=== PATIENT | male | born 1985 | race African-American/Black ===

== ENCOUNTER 2018-12-23 10:22 | Inpatient (IN) | payer OTHER ==
[2018-12-23 10:58] VITALS: BMI 25.8
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
[2018-12-23] MEDS ORDERED: hydrOXYzine PAMOATE 50 MG CAPSULE (FP) PO PRN (11:57)
[2018-12-23] MEDS ORDERED: P-EPHED 60MG/TRIPROLIDI 2.5MG TABLET PO PRN (11:57)
[2018-12-23] MEDS ORDERED: MAGNESIUM HYDROX 2400MG/30ML ORAL SUSPENSION 30 ML CUP PO PRN (11:57)
[2018-12-23] MEDS ORDERED: MENTHOL/PHENOL 1 EACH UD MM PRN (11:57)
[2018-12-23] MEDS ORDERED: MAG HYDROX/AL HYDROX/SIMETH 30 ML UNIT-DOSE CUP PO PRN (11:57)
[2018-12-23] MEDS ORDERED: LOPERAMIDE HCL 2 MG CAPSULE PO PRN (11:57)
[2018-12-23] MEDS ORDERED: guaiFENesin 200 MG/10 ML 10 ML UNIT-DOSE CUPS PO PRN (11:57)
[2018-12-23] MEDS ORDERED: MAGNESIUM CITRATE 300 ML BOTTLE PO PRN (11:57)
[2018-12-23] MEDS ORDERED: TUBERCULIN PPD 5 TU/0.1ML VIAL ID ONE (13:17)
[2018-12-23] MEDS: NICOTINE 21 MG/24 HOURS TOPICAL PATCH TD SCH (13:20)
[2018-12-23] MEDS: IBUPROFEN 400 MG TABLET (FP) PO PRN (13:33)
[2018-12-23 15:45] LABS: HEMATOCRIT 40.5 % (35.4-49); HEMOGLOBIN 13.1 GM/dL (11.7-16.9); MCH 30.5 pg (25.7-33.7); MCHC 32.4 g/dl (32.0-35.9); MEAN CELL VOLUME 94.1 fl (80-96); PLATELET COUNT 299 K/MM3 (134-434); RDW 14.3 % (11.9-15.9); WHITE BLOOD COUNT 7.9 K/mm3 (4.0-10.0)
[2018-12-23 16:22] LABS: ALBUMIN 4.3 g/dl (3.4-5.0); ALK PHOS 70 U/L (45-117); ANION GAP 7 MMOL/L (8-16); BILIRUBIN,TOTAL 0.6 mg/dL (0.2-1); BLOOD UREA NITROGEN 14 mg/dL (7-18); CALCIUM 9.4 mg/dL (8.5-10.1); CHLORIDE 105 mmol/L (98-107); CO2 31 mmol/L (21-32); CREATININE 1.3 mg/dL (0.55-1.3); GLUCOSE,RANDOM 69 mg/dL (74-106); POTASSIUM 3.8 mmol/L (3.5-5.1); SGOT/AST 54 U/L (15-37); SGPT/ALT 33 U/L (13-61); SODIUM 143 mmol/L (136-145); TOT PROT 7.4 g/dl (6.4-8.2)
[2018-12-23 20:10] LABS: EPI CELLS 1.6 /HPF (0-5); PH,URINE 5.5 (5.0-8.0); URINE APPEARANCE CLEAR; URINE BACTERIA 1.4 /hpf (NEGATIVE); URINE BILIRUBIN NEGATIVE (NEGATIVE); URINE CASTS 7 /hpf (0-8); URINE COLOR DK YELLOW; URINE GLUCOSE (UA) NEGATIVE (NEGATIVE); URINE KETONE TRACE (NEGATIVE); URINE LEUK ESTERASE NEGATIVE (NEGATIVE); URINE NITRITE NEGATIVE (NEGATIVE); URINE PROTEIN TRACE (NEGATIVE); URINE RBC 5 /hpf (0-4); URINE WBC 2 /hpf (0-5)
[2018-12-23] MEDS: THIAMINE HCL 100 MG TABLET (FP) PO SCH (21:23)
[2018-12-23] MEDS: MELATONIN 5 MG TABLETS PO PRN (21:24)
[2018-12-24] MEDS: IBUPROFEN 400 MG TABLET (FP) PO PRN (10:35)
[2018-12-24] MEDS: PRENATAL VITAMINS W/ FOLIC ACID TABLET (FP) PO SCH (10:35)
[2018-12-24] MEDS: NICOTINE 21 MG/24 HOURS TOPICAL PATCH TD SCH (10:36)
[2018-12-24] MEDS: MELATONIN 5 MG TABLETS PO PRN (21:22)
[2018-12-24] MEDS: THIAMINE HCL 100 MG TABLET (FP) PO SCH (21:22)
[2018-12-25] MEDS: IBUPROFEN 400 MG TABLET (FP) PO PRN (10:37)
[2018-12-25] MEDS: NICOTINE 21 MG/24 HOURS TOPICAL PATCH TD SCH (10:40)
[2018-12-25] MEDS: PRENATAL VITAMINS W/ FOLIC ACID TABLET (FP) PO SCH (10:41)
[2018-12-25] MEDS: ACETAMINOPHEN 325 MG TABLET (FP) PO PRN (12:26)
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
[2018-12-25] MEDS: THIAMINE HCL 100 MG TABLET (FP) PO SCH (21:18)
[2018-12-25] MEDS: MELATONIN 5 MG TABLETS PO PRN (21:19)
[2018-12-26] MEDS: IBUPROFEN 400 MG TABLET (FP) PO PRN ×2 (00:33→15:51)
[2018-12-26] MEDS: PRENATAL VITAMINS W/ FOLIC ACID TABLET (FP) PO SCH (09:38)
[2018-12-26] MEDS: NICOTINE 21 MG/24 HOURS TOPICAL PATCH TD SCH (09:38)
[2018-12-26] MEDS: THIAMINE HCL 100 MG TABLET (FP) PO SCH (21:36)
[2018-12-26] MEDS: MELATONIN 5 MG TABLETS PO PRN (21:36)
[2018-12-27] MEDS: PRENATAL VITAMINS W/ FOLIC ACID TABLET (FP) PO SCH (09:48)
[2018-12-27] MEDS: NICOTINE 21 MG/24 HOURS TOPICAL PATCH TD SCH (09:48)
[2018-12-27] MEDS: IBUPROFEN 400 MG TABLET (FP) PO PRN (09:49)
[2018-12-27] MEDS: IBUPROFEN 600 MG TABLET (FP) PO PRN (14:50)
[2018-12-27] MEDS: MELATONIN 5 MG TABLETS PO PRN (21:22)
[2018-12-27] MEDS: THIAMINE HCL 100 MG TABLET (FP) PO SCH (21:23)
[2018-12-27] MEDS: BACITRACIN 0.9 GM PACKET TP SCH (21:23)
[2018-12-28] MEDS: BACITRACIN 0.9 GM PACKET TP SCH ×2 (10:21→21:24)
[2018-12-28] MEDS: PRENATAL VITAMINS W/ FOLIC ACID TABLET (FP) PO SCH (10:21)
[2018-12-28] MEDS: IBUPROFEN 600 MG TABLET (FP) PO PRN (10:21)
[2018-12-28] MEDS: NICOTINE 21 MG/24 HOURS TOPICAL PATCH TD SCH (10:26)
[2018-12-28] MEDS: ACETAMINOPHEN 325 MG TABLET (FP) PO PRN (13:27)
[2018-12-28] MEDS: MELATONIN 5 MG TABLETS PO PRN (21:24)
[2018-12-28] MEDS: THIAMINE HCL 100 MG TABLET (FP) PO SCH (21:24)
[2018-12-29] MEDS: BACITRACIN 0.9 GM PACKET TP SCH ×2 (10:19→21:30)
[2018-12-29] MEDS: NICOTINE 21 MG/24 HOURS TOPICAL PATCH TD SCH (10:19)
[2018-12-29] MEDS: PRENATAL VITAMINS W/ FOLIC ACID TABLET (FP) PO SCH (10:19)
[2018-12-29] MEDS: IBUPROFEN 600 MG TABLET (FP) PO PRN ×2 (11:56→19:05)
[2018-12-29] MEDS: MELATONIN 5 MG TABLETS PO PRN (21:30)
[2018-12-29] MEDS: THIAMINE HCL 100 MG TABLET (FP) PO SCH (21:30)
[2018-12-30] MEDS: IBUPROFEN 600 MG TABLET (FP) PO PRN ×3 (06:05→18:56)
[2018-12-30] MEDS: BACITRACIN 0.9 GM PACKET TP SCH ×2 (10:12→21:14)
[2018-12-30] MEDS: PRENATAL VITAMINS W/ FOLIC ACID TABLET (FP) PO SCH (10:12)
[2018-12-30] MEDS: NICOTINE 21 MG/24 HOURS TOPICAL PATCH TD SCH (10:12)
[2018-12-30] MEDS: MELATONIN 5 MG TABLETS PO PRN (21:15)
[2018-12-30] MEDS: THIAMINE HCL 100 MG TABLET (FP) PO SCH (21:15)
[2018-12-31] MEDS: NICOTINE 21 MG/24 HOURS TOPICAL PATCH TD SCH (10:03)
[2018-12-31] MEDS: BACITRACIN 0.9 GM PACKET TP SCH ×2 (10:03→21:27)
[2018-12-31] MEDS: PRENATAL VITAMINS W/ FOLIC ACID TABLET (FP) PO SCH (10:04)
[2018-12-31] MEDS: IBUPROFEN 600 MG TABLET (FP) PO PRN ×2 (12:18→21:27)
[2018-12-31] MEDS: THIAMINE HCL 100 MG TABLET (FP) PO SCH (21:28)
[2018-12-31] MEDS: MELATONIN 5 MG TABLETS PO PRN (21:28)
[2019-01-01] MEDS: IBUPROFEN 600 MG TABLET (FP) PO PRN ×3 (05:01→19:05)
[2019-01-01] MEDS: NICOTINE 21 MG/24 HOURS TOPICAL PATCH TD SCH (10:52)
[2019-01-01] MEDS: PRENATAL VITAMINS W/ FOLIC ACID TABLET (FP) PO SCH (10:52)
[2019-01-01] MEDS: BACITRACIN 0.9 GM PACKET TP SCH ×2 (10:52→21:39)
[2019-01-01] MEDS: THIAMINE HCL 100 MG TABLET (FP) PO SCH (21:38)
[2019-01-01] MEDS: MELATONIN 5 MG TABLETS PO PRN (21:39)
[2019-01-02] MEDS: IBUPROFEN 600 MG TABLET (FP) PO PRN ×2 (07:40→16:49)
[2019-01-02] MEDS: ACETAMINOPHEN 325 MG TABLET (FP) PO PRN (10:00)
[2019-01-02] MEDS: BACITRACIN 0.9 GM PACKET TP SCH ×2 (10:01→21:23)
[2019-01-02] MEDS: NICOTINE 21 MG/24 HOURS TOPICAL PATCH TD SCH (10:01)
[2019-01-02] MEDS: PRENATAL VITAMINS W/ FOLIC ACID TABLET (FP) PO SCH (10:01)
[2019-01-02] MEDS: MELATONIN 5 MG TABLETS PO PRN (21:23)
[2019-01-02] MEDS: THIAMINE HCL 100 MG TABLET (FP) PO SCH (21:23)
[2019-01-03] MEDS: IBUPROFEN 600 MG TABLET (FP) PO PRN ×3 (09:59→23:10)
[2019-01-03] MEDS: BACITRACIN 0.9 GM PACKET TP SCH ×2 (09:59→21:22)
[2019-01-03] MEDS: NICOTINE 21 MG/24 HOURS TOPICAL PATCH TD SCH (10:02)
[2019-01-03] MEDS: PRENATAL VITAMINS W/ FOLIC ACID TABLET (FP) PO SCH (10:02)
[2019-01-03] MEDS: MELATONIN 5 MG TABLETS PO PRN (21:22)
[2019-01-03] MEDS: THIAMINE HCL 100 MG TABLET (FP) PO SCH (21:23)
[2019-01-04] MEDS: IBUPROFEN 600 MG TABLET (FP) PO PRN ×3 (05:48→19:00)
[2019-01-04] MEDS: PRENATAL VITAMINS W/ FOLIC ACID TABLET (FP) PO SCH (10:31)
[2019-01-04] MEDS: BACITRACIN 0.9 GM PACKET TP SCH ×2 (10:31→21:26)
[2019-01-04] MEDS: NICOTINE 21 MG/24 HOURS TOPICAL PATCH TD SCH (10:31)
[2019-01-04] MEDS: THIAMINE HCL 100 MG TABLET (FP) PO SCH (21:26)
[2019-01-04] MEDS: MELATONIN 5 MG TABLETS PO PRN (21:26)
[2019-01-05] MEDS: IBUPROFEN 600 MG TABLET (FP) PO PRN (05:52)
[2019-01-05 06:36] VITALS: BP 138/97; PULSE 71; TEMP 97.7
[2019-01-05] MEDS: NICOTINE 21 MG/24 HOURS TOPICAL PATCH TD SCH (09:20)
[2019-01-05] MEDS: PRENATAL VITAMINS W/ FOLIC ACID TABLET (FP) PO SCH (09:20)
[2019-01-05] MEDS: BACITRACIN 0.9 GM PACKET TP SCH (09:20)
--- NOTE | 2019-01-05 14:32 | PN ---
[facility] Progress Note Note: PT COMPLETED REHAB AND DISCHARGED TODAY. PT WAS REFERRED TO [facility] [place], [place] FOR CD AFTERCARE. PT REPORTS HE GOES TO [facility] FOR MEDICAL MANAG[facility]. ALERT O X 3. DENIES S/H/I. Home Medications Medication Instructions Recorded NK [No Known Home Medication] 12/23/18 Vital Signs - 24 hr 01/05/19 01/05/19 01/05/19 00:30 03:30 06:35 Temperature 97.7 F Pulse Rate 71 Respiratory 18 18 17 Rate Blood Pressure 138/97 Laboratory Tests 12/23/18 12/23/18 12/23/18 12:15 12:15 12:15 WBC 7.9 RBC 4.30 Hgb 13.1 Hct 40.5 MCV 94.1 MCH 30.5 MCHC 32.4 RDW 14.3 Plt Count 299 D MPV 9.0 Sodium 143 Potassium 3.8 Chloride 105 Carbon Dioxide 31 Anion Gap 7 L BUN 14 Creatinine 1.3 Creat Clearance w eGFR 62.82 Random Glucose 69 L Calcium 9.4 Total Bilirubin 0.6 AST 54 H ALT 33 Alkaline Phosphatase 70 Total Protein 7.4 Albumin 4.3 Urine Color Urine Appearance Urine pH Ur Specific [place] Urine Protein Urine Glucose (UA) Urine Ketones Urine Blood Urine Nitrite Urine Bilirubin Urine Urobilinogen Ur Leukocyte Esterase Urine WBC (Auto) Urine RBC (Auto) Urine Casts (Auto) U Epithel Cells (Auto) Urine Bacteria (Auto) RPR Titer Nonreactive HIV 1&2 Antibody Screen HIV P24 Antigen 12/23/18 12/23/18 12:15 13:00 WBC RBC Hgb Hct MCV MCH MCHC RDW Plt Count MPV Sodium Potassium Chloride Carbon Dioxide Anion Gap BUN Creatinine Creat Clearance w eGFR Random Glucose Calcium Total Bilirubin AST ALT Alkaline Phosphatase Total Protein Albumin Urine Color Dk yellow Urine Appearance Clear Urine pH 5.5 Ur Specific [place] 1.035 Urine Protein Trace Urine Glucose (UA) Negative Urine Ketones Trace H Urine Blood Negative Urine Nitrite Negative Urine Bilirubin Negative Urine Urobilinogen 1.0 Ur Leukocyte Esterase Negative Urine WBC (Auto) 2 Urine RBC (Auto) 5 Urine Casts (Auto) 7 U Epithel Cells (Auto) 1.6 Urine Bacteria (Auto) 1.4 RPR Titer HIV 1&2 Antibody Screen Negative HIV P24 Antigen Negative NAD MEDICALLY STABLE PLAN:FOLLOW UP WITH CD AFTERCARE RECOMMENDED. FOLLOW UP WITH PCP AT [facility] WITHIN 1-2 WEEKS AFTER DISCHARGE. FOLLOW UP AT [facility] FOR LEFT WRIST FX CHECK UP/ WRIST BRACE DURATION.
== END 2019-01-05 09:30 | disposition home or self-care (01) | DRG 772 ==
LOC: YASAS 10:22 → Y5N 12:09
PROVIDERS: ADMIT Neuromusculoskeletal Medicine & OMM; ATTEND Neuromusculoskeletal Medicine & OMM
PROC: HZ42ZZZ Group Counseling for Substance Abuse Treatment, Cognitive-Behavioral (ICD-10-PCS; principal; 2018-12-23)
DX: F10.20 Alcohol dependence, uncomplicated (principal); F16.20 Hallucinogen dependence, uncomplicated; F12.20 Cannabis dependence, uncomplicated; F17.210 Nicotine dependence, cigarettes, uncomplicated; F32.9 Major depressive disorder, single episode, unspecified; H11.33 Conjunctival hemorrhage, bilateral; M25.532 Pain in left wrist; S62.102D Fracture of unspecified carpal bone, left wrist, subsequent encounter for fracture with routine healing; Y04.2XXD Assault by strike against or bumped into by another person, subsequent encounter
CPT/HCPCS: 36415; 80053; 81003; 85027; 86593; 87389